=== PATIENT | male | born 1990 | race American Indian/Alaskan Native ===

== ENCOUNTER 2017-08-06 00:25 | Emergency (ER) | payer BC, OTHER ==
[2017-08-06 01:19] VITALS: BP 123/66; PULSE 108; RESP 18; TEMP 100.3; O2SAT 96
--- NOTE | 2017-08-06 02:12 | ED PDOC ---
HPI: General Adult Time Seen by Provider: 08/06/17 02:11 Chief Complaint (Nursing): Flu-like Symptoms Chief Complaint (Provider): FLU-LIKE SYMPTOMS History Per: Patient (26 Y/O MALE HERE WITH PARTNER FOR EVALUATION OF FEVER/ COUGH TODAY. ATTEMPTED THERAFLU AT 10PM BUT VOMITED AT THAT TIME. NOTED TO HAVE FEVER OF 101 EARLY TONIGHT. CHILD NOTED TO HAVE FLU AND STARTED ON TAMIFLU.) Past Medical History Reviewed: Historical Data, Nursing Documentation, Vital Signs Vital Signs: Last Vital Signs Temp 100.3 F H 08/06/17 00:46 Pulse 108 H 08/06/17 00:46 Resp 18 08/06/17 00:46 BP 123/66 08/06/17 00:46 Pulse Ox 96 08/06/17 02:12 - Family History Family History: States: No Known Family Hx - Home Medications Home Medications: Ambulatory Orders Medication Instructions Recorded Ondansetron [Zofran Odt] 4 mg PO BID PRN #12 odt 08/16/14 Acetaminophen [Acetaminophen Extra 2 tab PO Q6 PRN #24 tablet 08/06/17 Strength] Famotidine [Pepcid] 20 mg PO BID PRN #10 tab 08/06/17 Ibuprofen [Motrin Tab] 800 mg PO Q8 PRN #21 tab 08/06/17 Oseltamivir Phosphate [Tamiflu] 75 mg PO BID #9 capsule 08/06/17 - Allergies Allergies/Adverse Reactions: Allergies Allergy/AdvReac Type Severity Reaction Status Date / Time No Known Allergies Allergy Verified 08/16/14 10:05 Review of Systems ROS Statement: Except As Marked, All Systems Reviewed And Found Negative Constitutional: Positive for: Fever Respiratory: Positive for: Cough Physical Exam - Reviewed Nursing Documentation Reviewed: Yes Vital Signs Reviewed: Yes - Physical Exam Appears: Positive for: Well, Non-toxic, No Acute Distress Head Exam: Positive for: ATRAUMATIC, NORMAL INSPECTION, NORMOCEPHALIC Skin: Positive for: Normal Color, Warm, DRY Eye Exam: Positive for: EOMI, Normal appearance, PERRL ENT: Positive for: Normal ENT Inspection Neck: Positive for: Normal, Painless ROM Cardiovascular/Chest: Positive for: Regular Rate, Rhythm Respiratory: Positive for: CNT, Normal Breath Sounds Gastrointestinal/Abdominal: Positive for: Normal Exam, Bowel Sounds, Soft Back: Positive for: Normal Inspection Extremity: Positive for: Normal ROM Neurologic/Psych: Positive for: Alert, Oriented - ECG O2 Sat by Pulse Oximetry: 96 - Progress ED Course And Treament: ZOFRAN 4MG ODT TYLENOL 975MG X 1 DOSE TAMIFLU 75MG Disposition - Clinical Impression Clinical Impression: Influenza-like symptoms - Patient ED Disposition Is Patient to be Admitted: No - Disposition Disposition: Routine/Home Disposition Time: 03:32 Condition: FAIR Prescriptions: Acetaminophen [Acetaminophen Extra Strength] 2 tab PO Q6 PRN #24 tablet PRN Reason: Fever >100.4 F Famotidine [Pepcid] 20 mg PO BID PRN #10 tab PRN Reason: Pain, Mild (1-3) Ibuprofen [Motrin Tab] 800 mg PO Q8 PRN #21 tab PRN Reason: Fever >100.4 F Oseltamivir Phosphate [Tamiflu] 75 mg PO BID #9 capsule Instructions: Influenza (ED) Forms: [facility] (Kyrgyz), [facility] ED School/Work Excuse
== END 2017-08-06 03:55 | disposition home or self-care (01) ==
LOC: H.ER 00:25
DX: J11.1 Influenza due to unidentified influenza virus with other respiratory manifestations (principal)